=== PATIENT | male | born 1990 | race Caucasian/White ===

== ENCOUNTER 2016-10-22 22:30 | Observation (INO) | payer SELFPAY ==
[~2016-10-22] VITALS: Ht 182.9 cm; Wt 77.3 kg
[2016-10-22 23:09] LABS: BASO # 0.1 (0.0-0.2); BASO % 0.5 % (0.0-2.0); EOS # 0.1 (0.0-0.7); GRAN # 5.6 (1.4-6.5); GRAN % 60.1 % (42.2-75.2); HEMATOCRIT 39.9 % (42.0-52.0); HEMOGLOBIN 13.6 g/dl (13.5-18.0); LYMPH # 2.7 (1.2-3.4); MEAN CELL VOLUME 91 fl (80.0-100.0); MEAN CORPUSCULAR HEMOGLOBIN 31 pg (27.0-31.0); MEAN CORPUSCULAR HGB CONC 34 g/dl (33.0-37.0); MEAN PLATELET VOLUME 9.2 fl (7.4-10.4); MONO # 0.9 (0.1-0.6); MONO % 9.2 % (1.7-9.3); PLATELET COUNT 130 K/mm3 (130-400); REDCELL DISTRIBUTION WIDTH-CV 12.4 % (11.5-14.5); WHITE BLOOD COUNT 9.4 K/mm3 (4.8-10.8)
[2016-10-22 23:32] LABS: B-TYPE NATRIURETIC PEPTIDE 38 pg/mL (0-125)
[2016-10-22 23:34] LABS: ACETAMINOPHEN < 10 ug/mL (10-30); SALICYLATE < 1.0 mg/dL; TROPONIN-I < 0.012 ng/mL (0.000-0.034)
[2016-10-23 00:24] LABS: ANION GAP 13 mmol/L (7-16); BLOOD UREA NITROGEN 28 mg/dL (9-20); CALCIUM 9.3 mg/dL (8.4-10.2); CARBON DIOXIDE 27 mmol/L (22-30); CHLORIDE 101 mmol/L (98-107); CREATININE, serum 0.94 mg/dL (0.66-1.25); GLUCOSE 73 mg/dL (74-106); POTASSIUM 4.2 mmol/L (3.4-5.0); SODIUM 141 mmol/L (137-145)
[2016-10-23 02:49] LABS: PH 6 (5-8); SQUAMOUS EPITHELIAL 0-2 /hpf; URINE APPEARANCE Clear; URINE BACTERIA None Seen /hpf; URINE BILIRUBIN Negative (NEGATIVE); URINE BLOOD Negative (NEGATIVE); URINE COLOR Yellow; URINE GLUCOSE Negative (NEGATIVE); URINE KETONE Negative (NEGATIVE); URINE RBC 0-2 /hpf; URINE UROBILINOGEN Negative (NEGATIVE); URINE WBC 0-2 /hpf
[2016-10-23 02:58] LABS: AMPHETAMINE URINE NEGATIVE; BARBITURATES URINE NEGATIVE; BENZODIAZEPINES URINE NEGATIVE; BUPRENORPHINE URINE NEGATIVE; METHADONE URINE NEGATIVE; OPIATES URINE NEGATIVE; OXYCODONE URINE NEGATIVE; PHENCYCLIDINE URINE NEGATIVE; PROPOXYPHENE URINE NEGATIVE; THC CANNABINOIDS URINE POSITIVE
[2016-10-23 04:54] VITALS: BP 115/69; PULSE 46; TEMP 98.6
[2016-10-23 08:00] VITALS: PULSE 54
[2016-10-23 11:53] VITALS: BP 113/88; PULSE 52
[2016-10-23 16:00] VITALS: BP 113/88; PULSE 51
== END 2016-10-23 19:54 ==
LOC: COL.ER 22:30 → ICU 23:51
PROVIDERS: Emergency Medicine
DX: F23 Brief psychotic disorder (principal); F12.90 Cannabis use, unspecified, uncomplicated
CPT/HCPCS: 90791-AI; G0378